=== PATIENT | male | born 1995 | race Caucasian/White ===

== ENCOUNTER 2021-03-13 19:33 | Observation (INO) | payer BC ==
[2021-03-13] MEDS ORDERED: Sodium Chloride 0.9% 2.5 ML Syringe FLUSH PRN (19:56)
[2021-03-13] MEDS ORDERED: Albuterol/Ipratropium 3.0-0.5 MG/3 ML Neb Soln NEB ONE ×4 (19:56→22:44)
[2021-03-13] MEDS ORDERED: Sodium Chloride 0.9% 10 ML Syringe FLUSH PRN (19:56)
[2021-03-13] MEDS ORDERED: Dexamethasone 10 MG/ML SDV IVPUSH ONE (19:57)
[2021-03-13] MEDS ORDERED: Sodium Chloride 0.9% 1,000 ML IV ONE (19:57)
[2021-03-13] MEDS ORDERED: Magnesium Sulfate (4.06 MEQ/ML) 5 GM/10 ML SDV IV STA (20:12)
[2021-03-13 20:43] LABS: BLOOD UREA NITROGEN,BUN 10 mg/dL (7.0-18.0); CARBON DIOXIDE,CO2 26.2 mmol/L (21.0-32.0); CHLORIDE,CL 98 mmol/L (98-107); GLUCOSE RANDOM 115 mg/dL (74-106); POTASSIUM,K 3.7 mmol/L (3.5-5.1); SODIUM,NA 138 mmol/L (136-148)
--- NOTE | 2021-03-13 20:49 | CR ---
INDICATION: Shortness of breath. TECHNIQUE: Chest radiograph 1 view COMPARISON: 04/19/2018 FINDINGS: Cardiovascular and mediastinum: The heart silhouette is normal in size and morphology. The mediastinum is normal in appearance. Lungs and pleural spaces: Both lungs are unremarkable in appearance. No sign of pleural effusion seen. No pneumothorax is identified. Bones and soft tissues: No significant findings. IMPRESSION: 1. No acute cardiopulmonary disease is seen. Dictated by Fernando Landaverde MD @ 03/13/2021 8:47:00 PM (Electronically Signed)
[2021-03-13] MEDS ORDERED: Magnesium Sulfate/Water 50 ML IV ONE (21:00)
--- NOTE | 2021-03-13 21:19 | PCM.EKG ---
#1 Interpretation EKG Date: 03/13/21 Time: 21:09 Rhythm: Other (sinus tach) Rate (Beats/Min): 109 ST-T: Normal
[2021-03-13] MEDS ORDERED: Magnesium Sulfate/Water 25 ML IV ONE (21:20)
[2021-03-13] MEDS ORDERED: Iopamidol 755 MG/ML 500 ML Multipack Bottle IVPUSH ONE (21:31)
--- NOTE | 2021-03-13 21:46 | EDM.PDOC ---
ED HPI GENERAL MEDICAL PROBLEM - General Chief Complaint: Respiratory Problem Stated Complaint: ASTHMA, SOB Time Seen by Provider: 03/13/21 19:54 Source of Information: Reports: Patient History Limitations: Reports: No Limitations - History of Present Illness INITIAL COMMENTS - FREE TEXT/NARRATIVE: HISTORY AND PHYSICAL: History of present illness: Patient is a 25-year-old male who presents emergency room today with concern of shortness of breath and wheezing with known asthma diagnosis. Patient states that he typically does not require an asthma regimen and has a rescue inhaler which he typically never uses. However, patient states that just over a month ago he was diagnosed with COVID-19 and is no longer on quarantine for that but states that ever since that, he has had frequent asthma exacerbations. Patient states he is also been to another emergency room and was told it was "just asthma ". Patient states over the past couple days, he has had worsening wheezing and shortness of breath and today his nebulizers were no longer helping at home so he came to the emergency room for further evaluation. Patient states that he was last on prednisone approximately 2 weeks ago and states that he has been on frequent steroids since the COVID-19 diagnosis. Patient also states that he is having some "rib pain" which is worse with coughing. Patient states that the rib pain started with coughing so hard. Patient denies any other symptoms or concerns. Patient denies fever, chills, chest pain, shortness of breath, or cough. Denies headache, neck stiff ness, change in vision, syncope, or near syncope. Denies nausea, vomiting, abdominal pain, diarrhea, constipation, or dysuria. Has not noted any blood in urine or stool. Patient has been eating and drinking ap propriately. Review of systems: As per history of present illness and below otherwise all systems reviewed and negative. Past medical history: As per history of present illness and as reviewed below otherwise noncontributory. Surgical history: As per history of present illness and as reviewed below otherwise noncontributory. Social history: See social history for further information Family history: As per history of present illness and as reviewed below otherwise noncontributory. Physical exam: General: Patient is alert, oriented. Patient sitting on exam table, tachypneic and mild-moderate respiratory distress. Patient is 87-90% on RA, tachycardic 120s. Otherwise vitally stable and reviewed by me. HECRISTA: Atraumatic, normocephalic, pupils equal and reactive bilaterally, negative for conjunctival pallor or scleral icterus, mucous membranes moist, TMs normal bilaterally, throat clear, neck supple, nontender, trachea midline. No drooling or trismus noted. No meningeal signs. No hot potato voice noted. Lungs: Diffuse expiratory wheezing to auscultation throughout all lung feng, breath sounds equal bilaterally, chest nontender. Patient speaking clearly without breathlessness, no stridor, use of accessory muscle use Heart: S1S2, regular rate and rhythm without overt murmur Abdomen: Soft, nondistended, nontender. Negative for masses or hepatosplenomegaly. Negative for costovertebral tenderness. Pelvis: Stable nontender. Genitourinary: Deferred. Rectal: Deferred. Skin: Intact, warm, dry. No lesions or rashes noted. Extremities: Atraumatic, negative for cords or calf pain. Neurovascular unremarkable. Neuro: Awake, alert, oriented. Cranial nerves II through XII unremarkable. Cerebellum unremarkable. Motor and sensory unremarkable throughout. Exam nonfocal. Notes: Patient is a 25-year-old male who presents emergency room today with concern of wheezing and shortness of breath worsening over the past several days with increased in asthma exacerbation since COVID-19 just little bit over a month ago. Upon arrival to ED, patient is 87-90% on room air, tachycardic 120s and tachypneic on exam. Patient is using accessory muscle use but is able to speak clearly without breathlessness. Patient does have diffuse expiratory wheezing throughout all lung feng. Patient was immediately given continuous DuoNeb, and Decadron while awaiting lab work. Following the nebulizer, patient continues to have diffuse wheezing, but does have improvement of accessory muscle use. Patient was placed on 3 L nasal cannula and satting about 96%. He is still tachypneic. Will also provide magnesium at this time. See Dr. Akbar dictation for specific EKG interpretation. However, sinus tachycardia with a rate of 109 without STEMI or acute changes. CBC notable for a white blood cell count of 20.34 with a left shift with 12.8 absolute segmented neutrophils and 2.4 band percent. Otherwise mild derangements of CBC unremarkable. D-dimer is elevated at 0.62. Will obtain an giography chest CT. CMP mild derangements unremarkable. Troponin negative. Chest x-ray shows no acute cardiopulmonary findings. Following completion of Magnesium, patient remains on 3 L nasal cannula satting now at this time approximately 93%. I did try to remove oxygen and patient does go back down to the 87 to 90% on room air. Reexamination of patient lungs to auscultation still shows diffuse expiratory wheezing to auscultation throughout all lung feng, although, patient's respiratory effort has improved. He still remains mildly tachypneic. I did call and speak to the hospital physical integration practitioner Dr. Manzanares and thoroughly discussed patients case. Will admit to observation to Dr. Manzanares. Voices understanding and is agreeable to plan of care. Denies any further questions or concerns at this time. Diagnostics: EKG, CBC, CMP, Ddimer, Trop, CXR, Ang CT Chest, Lactate, VBG Therapeutics: NS, Duoneb x 3, Decadron, Magnesium, Repeat Duoneb Impression: Acute asthma exacerbation Hypoxia Plan: Admit to observation to Dr. Manzanares Definitive disposition and diagnosis as appropriate pending reevaluation and review of above. Bilateral Thoracic Pain Score (Numeric/FACES): 9 - Related Data Allergies Allergy/AdvReac Type Severity Reaction Status Date / Time bee venom protein (honey bee) Allergy Anaphylactic Verified 03/14/21 01:29 Shock Home Meds: Home Meds Albuterol Sulfate [Proair Hfa] 1 puff INH ASDIRECTED PRN 03/29/18 [History] Albuterol [Ventolin HFA] 1 puff INH Q4H PRN #1 inh 04/19/18 [Rx] Albuterol/Ipratropium [Combivent Respimat] 4 gm IH BID #1 aer.w.adap 04/19/18 [Rx] Past Medical History Respiratory History: Reports: Asthma - Infectious Disease History Infectious Disease History: Reports: Chicken Pox - Past Surgical History GI Surgical History: Reports: Hernia Repair/Other Social & Family History - Family History Family Medical History: No Pertinent Family History Respiratory: Reports: Asthma Endocrine/Metabolic: Reports: Diabetes, Type I - Tobacco Use Tobacco Use Status *Q: Former Tobacco User Packs/Tins Daily: 0.5 Used Tobacco, but Quit: No - Caffeine Use Caffeine Use: Reports: Soda Caffeine Use Comment: 1 L daily - Recreational Drug Use Recreational Drug Use: No ED ROS GENERAL - Review of Systems Review Of Systems: Comprehensive ROS is negative, except as noted in HPI. ED EXAM, GENERAL - Physical Exam Exam: See Below (see dictation) Course - Vital Signs Last Recorded V/S: Last Vital Signs Temp 98.3 F 03/14/21 07:36 Pulse 93 03/14/21 07:36 Resp 18 03/14/21 07:36 BP 139/73 03/14/21 07:36 Pulse Ox 92 L 03/14/21 07:36 - Orders/Labs/Meds Orders: Active Orders 24 hr Category Date Time Status RT Aerosol Therapy [RC] ASDIRECTED Care 03/13/21 19:56 Active RT Aerosol Therapy [RC] ASDIRECTED Care 03/13/21 19:56 Active RT Aerosol Therapy [RC] ASDIRECTED Care 03/13/21 19:56 Active RT Aerosol Therapy [RC] ASDIRECTED Care 03/13/21 22:44 Active Sodium Chloride 0.9% [Saline Flush] Med 03/13/21 19:56 Active 10 ml FLUSH ASDIRECTED PRN Sodium Chloride 0.9% [Saline Flush] Med 03/13/21 19:56 Active 2.5 ml FLUSH ASDIRECTED PRN Saline Lock Insert [OM.PC] Stat Oth 03/13/21 19:56 Ordered Medication Orders Albuterol/Ipratropium (Albuterol/Ipratropium 3.0-0.5 Mg/3 Ml Neb Soln) 3 ml NEB Q4HRRT [facility] Last Admin: 03/14/21 05:54 Dose: 3 ml Documented by: JULIANNE Azithromycin (Azithromycin 250 Mg Tab) 500 mg PO Q24H [facility] Last Admin: 03/14/21 02:53 Dose: 500 mg Documented by: MIAH Methylprednisolone Sodium Succinate (Methylprednisolone Sodium Succinate 125 Mg/2 Ml Sdv) 125 mg IVPUSH DAILY [facility] Sodium Chloride (Sodium Chloride 0.9% 10 Ml Syringe) 10 ml FLUSH ASDIRECTED PRN PRN Reason: Keep Vein Open Last Admin: 03/13/21 19:59 Dose: 10 ml Documented by: GENEVA Sodium Chloride (Sodium Chloride 0.9% 2.5 Ml Syringe) 2.5 ml FLUSH ASDIRECTED PRN PRN Reason: Keep Vein Open Last Admin: 03/13/21 19:59 Dose: 2.5 ml Documented by: GENEVA Labs: Laboratory Tests 03/13/21 03/13/21 03/13/21 Range/Units 20:05 20:05 20:05 WBC 20.34 H (4.0-11.0) K/uL RBC 5.19 (4.50-5.90) M/uL Hgb 17.2 H (13.0-17.0) g/dL Hct 48.6 (38.0-50.0) % MCV 93.6 (80.0-98.0) fL MCH 33.1 H (27.0-32.0) pg MCHC 35.4 (31.0-37.0) g/dL RDW Std Deviation 43.2 (28.0-62.0) fl RDW Coeff of Lydia 13 (11.0-15.0) % Plt Count 299 (150-400) K/uL MPV 9.40 (7.40-12.00) fL Add Manual Diff YES Neutrophils % (Manual) 63 (48.0-80.0) % Band Neutrophils % 12 % Lymphocytes % (Manual) 19 (16.0-40.0) % Monocytes % (Manual) 2 (0.0-15.0) % Eosinophils % (Manual) 4 (0.0-7.0) % Absolute Seg Neuts 12.8 H (1.4-5.7) Band Neutrophils # 2.4 Lymphocytes # (Manual) 3.9 H (0.6-2.4) Monocytes # (Manual) 0.4 (0.0-0.8) Eosinophils # (Manual) 0.8 H (0.0-0.7) D-Dimer, Quantitative 0.62 H (0.0-0.50) mg/L FEU VBG pH (7.31-7.41) VBG pCO2 (41-51) mmHG VBG pO2 mmHG VBG HCO3 (23-28) mEq/L VBG Total CO2 (24-29) mmol/L VBG Base Excess (-2.0-3.0) Sodium 138 (136-148) mmol/L Potassium 3.7 (3.5-5.1) mmol/L Chloride 98 (98-107) mmol/L Carbon Dioxide 26.2 (21.0-32.0) mmol/L BUN 10 (7.0-18.0) mg/dL Creatinine 1.0 (0.8-1.3) mg/dL Est Cr Clr Drug Dosing 115.58 mL/min Estimated GFR (MDRD) > 60.0 ml/min Glucose 115 H (74-106) mg/dL Lactic Acid (0.4-2.0) mmol/L Calcium 8.5 (8.5-10.1) mg/dL Total Bilirubin 0.4 (0.2-1.0) mg/dL AST 28 (15-37) IU/L ALT 53 (14-63) IU/L Alkaline Phosphatase 91 (46-116) U/L Troponin I < 0.050 (0.000-0.056) ng/mL Total Protein 7.7 (6.4-8.2) g/dL Albumin 4.2 (3.4-5.0) g/dL Globulin 3.5 (2.6-4.0) g/dL Albumin/Globulin Ratio 1.2 (0.9-1.6) SARS-CoV-2 RNA (CASSANDRA) (NEGATIVE) 03/13/21 03/13/21 03/13/21 Range/Units 22:14 22:14 22:50 WBC (4.0-11.0) K/uL RBC (4.50-5.90) M/uL Hgb (13.0-17.0) g/dL Hct (38.0-50.0) % MCV (80.0-98.0) fL MCH (27.0-32.0) pg MCHC (31.0-37.0) g/dL RDW Std Deviation (28.0-62.0) fl RDW Coeff of Lydia (11.0-15.0) % Plt Count (150-400) K/uL MPV (7.40-12.00) fL Add Manual Diff Neutrophils % (Manual) (48.0-80.0) % Band Neutrophils % % Lymphocytes % (Manual) (16.0-40.0) % Monocytes % (Manual) (0.0-15.0) % Eosinophils % (Manual) (0.0-7.0) % Absolute Seg Neuts (1.4-5.7) Band Neutrophils # Lymphocytes # (Manual) (0.6-2.4) Monocytes # (Manual) (0.0-0.8) Eosinophils # (Manual) (0.0-0.7) D-Dimer, Quantitative (0.0-0.50) mg/L FEU VBG pH 7.38 (7.31-7.41) VBG pCO2 42 (41-51) mmHG VBG pO2 50 mmHG VBG HCO3 24 (23-28) mEq/L VBG Total CO2 21 L (24-29) mmol/L VBG Base Excess -0.9 (-2.0-3.0) Sodium (136-148) mmol/L Potassium (3.5-5.1) mmol/L Chloride (98-107) mmol/L Carbon Dioxide (21.0-32.0) mmol/L BUN (7.0-18.0) mg/dL Creatinine (0.8-1.3) mg/dL Est Cr Clr Drug Dosing mL/min Estimated GFR (MDRD) ml/min Glucose (74-106) mg/dL Lactic Acid 1.0 (0.4-2.0) mmol/L Calcium (8.5-10.1) mg/dL Total Bilirubin (0.2-1.0) mg/dL AST (15-37) IU/L ALT (14-63) IU/L Alkaline Phosphatase (46-116) U/L Troponin I (0.000-0.056) ng/mL Total Protein (6.4-8.2) g/dL Albumin (3.4-5.0) g/dL Globulin (2.6-4.0) g/dL Albumin/Globulin Ratio (0.9-1.6) SARS-CoV-2 RNA (CASSANDRA) NEGATIVE (NEGATIVE) Meds: Medications Generic Name Dose Route Start Last Admin Trade Name Freq PRN Reason Stop Dose Admin Albuterol/Ipratropium 3 ml 03/14/21 06:00 03/14/21 05:54 Albuterol/Ipratropium 3.0-0.5 Mg/3 Ml Neb Soln NEB 3 ml Q4HRRT MARILEE Administration Azithromycin 500 mg 03/14/21 02:15 03/14/21 02:53 Azithromycin 250 Mg Tab PO 500 mg Q24H MARILEE Administration Methylprednisolone Sodium Succinate 125 mg 03/14/21 09:00 Methylprednisolone Sodium Succinate 125 Mg/2 Ml Sdv IVPUSH DAILY [facility] Sodium Chloride 10 ml 03/13/21 19:56 03/13/21 19:59 Sodium Chloride 0.9% 10 Ml Syringe FLUSH 10 ml ASDIRECTED PRN Administration Keep Vein Open Sodium Chloride 2.5 ml 03/13/21 19:56 03/13/21 19:59 Sodium Chloride 0.9% 2.5 Ml Syringe FLUSH 2.5 ml ASDIRECTED PRN Administration Keep Vein Open Discontinued Medications Generic Name Dose Route Start Last Admin Trade Name Freq PRN Reason Stop Dose Admin Albuterol/Ipratropium 3 ml 03/13/21 19:56 03/13/21 19:59 Albuterol/Ipratropium 3.0-0.5 Mg/3 Ml Neb Soln NEB 03/13/21 19:57 3 ml ONETIME ONE Administration Albuterol/Ipratropium 3 ml 03/13/21 19:56 03/13/21 19:59 Albuterol/Ipratropium 3.0-0.5 Mg/3 Ml Neb Soln NEB 03/13/21 19:57 3 ml ONETIME ONE Administration Albuterol/Ipratropium 3 ml 03/13/21 19:56 03/13/21 19:59 Albuterol/Ipratropium 3.0-0.5 Mg/3 Ml Neb Soln NEB 03/13/21 19:57 3 ml ONETIME ONE Administration Albuterol/Ipratropium 3 ml 03/13/21 22:44 03/13/21 22:56 Albuterol/Ipratropium 3.0-0.5 Mg/3 Ml Neb Soln NEB 03/13/21 22:45 3 ml ONETIME ONE Administration Dexamethasone 10 mg 03/13/21 19:57 03/13/21 20:03 Dexamethasone 10 Mg/Ml Sdv IVPUSH 03/13/21 19:58 10 mg ONETIME ONE Administration Sodium Chloride 1,000 mls @ 999 mls/hr 03/13/21 19:57 03/13/21 20:03 Normal Saline IV 03/13/21 20:57 999 mls/hr STAT ONE Administration Magnesium Sulfate 50 mls @ 150 mls/hr 03/13/21 21:00 03/13/21 21:04 Magnesium Sulfate In Water 2 Gm/50 Ml IV 03/13/21 21:19 150 mls/hr ONETIME ONE Administration Magnesium Sulfate 25 mls @ 150 mls/hr 03/13/21 21:20 Magnesium Sulfate In Water 2 Gm/50 Ml IV 03/13/21 21:29 ONETIME ONE Iopamidol 100 ml 03/13/21 21:31 03/13/21 21:47 Iopamidol 755 Mg/Ml 500 Ml Multipack Bottle IVPUSH 03/13/21 21:32 100 ml ONETIME ONE Administration Magnesium Sulfate 3 gm 03/13/21 20:12 Magnesium Sulfate (4.06 Meq/Ml) 5 Gm/10 Ml Sdv IV 03/13/21 20:13 NOW STA Departure - Departure Time of Disposition: 10:10 Disposition: Refer to Observation Clinical Impression: Hypoxia Acute asthma exacerbation Qualifiers: Asthma severity: mild Asthma persistence: intermittent Qualified Code(s): J45.21 - Mild intermittent asthma with (acute) exacerbation - Discharge Information Sepsis Event Note (ED) - Evaluation Sepsis Screening Result: No Definite Risk - Focused Exam Vital Signs: Vital Signs Pulse Resp BP Pulse Ox 03/13/21 23:00 104 H 22 H 145/77 H 96 - My Orders Last 24 Hours: My Active Orders 03/13/21 19:56 RT Aerosol Therapy [RC] ASDIRECTED RT Aerosol Therapy [RC] ASDIRECTED RT Aerosol Therapy [RC] ASDIRECTED Sodium Chloride 0.9% [Saline Flush] 10 ml FLUSH ASDIRECTED PRN Sodium Chloride 0.9% [Saline Flush] 2.5 ml FLUSH ASDIRECTED PRN Saline Lock Insert [OM.PC] Stat 03/13/21 22:44 RT Aerosol Therapy [RC] ASDIRECTED - Assessment/Plan Last 24 Hours: My Active Orders 03/13/21 19:56 RT Aerosol Therapy [RC] ASDIRECTED RT Aerosol Therapy [RC] ASDIRECTED RT Aerosol Therapy [RC] ASDIRECTED Sodium Chloride 0.9% [Saline Flush] 10 ml FLUSH ASDIRECTED PRN Sodium Chloride 0.9% [Saline Flush] 2.5 ml FLUSH ASDIRECTED PRN Saline Lock Insert [OM.PC] Stat 03/13/21 22:44 RT Aerosol Therapy [RC] ASDIRECTED
--- NOTE | 2021-03-13 22:49 | CT ---
INDICATION: Chest pain, hypoxia and elevated D-dimer TECHNIQUE: CT chest PE was acquired with 100 cc Isovue 370 intravenous contrast. COMPARISON: None. FINDINGS: Heart and vasculature: Contrast opacification of the pulmonary arterial tree is adequate. No sign of pulmonary embolism. Heart size is normal. Thoracic aorta and pulmonary artery are normal in caliber. Lungs and pleural: No suspicious nodules or infiltrates. No pleural effusions, pleural thickening, or pneumothorax. Lymph nodes/mediastinum: No mediastinal, hilar, or axillary adenopathy. Chest wall: No masses. Upper abdomen: Normal. Bones: Unremarkable for age. IMPRESSION: Unremarkable chest CTA. No evidence of pulmonary embolus. Please note that all CT scans at this facility use dose modulation, iterative reconstruction, and/or weight-based dosing when appropriate to reduce radiation dose to as low as reasonably achievable. Dictated by Aftab Amaya MD @ 03/13/2021 10:47:17 PM (Electronically Signed)
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
[2021-03-14] MEDS: Azithromycin 250 MG Tab PO SCH (02:53)
[2021-03-14] MEDS: Albuterol/Ipratropium 3.0-0.5 MG/3 ML Neb Soln NEB SCH ×5 (05:54→22:56)
[2021-03-14 07:50] LABS: BLOOD UREA NITROGEN,BUN 10 mg/dL (7.0-18.0); CARBON DIOXIDE,CO2 23.8 mmol/L (21.0-32.0); CHLORIDE,CL 101 mmol/L (98-107); GLUCOSE RANDOM 131 mg/dL (74-106); POTASSIUM,K 4.7 mmol/L (3.5-5.1); SODIUM,NA 137 mmol/L (136-148)
[2021-03-14] MEDS: methylPREDNISolone Sodium Succinate 125 MG/2 ML SDV IVPUSH SCH (10:10)
[2021-03-14] MEDS ORDERED: Acetaminophen 325 MG Tab PO PRN (13:32)
[2021-03-14] MEDS ORDERED: Ibuprofen 200 MG Tab PO PRN (13:32)
--- NOTE | 2021-03-14 13:41 | PCM.PN ---
- General Info Date of Service: 03/14/21 - Review of Systems Systems Review Comment:: feeling better, still has chest tightness and shortness of breath. - Patient Data Vitals - Most Recent: Last Vital Signs Temp 36.5 C 03/14/21 11:25 Pulse 99 03/14/21 11:25 Resp 18 03/14/21 11:25 BP 154/84 H 03/14/21 11:25 Pulse Ox 92 L 03/14/21 11:25 Weight - Most Recent: 89.222 kg I&O - Last 24 Hours: Intake & Output 03/13/21 03/14/21 03/14/21 22:59 06:59 14:59 Intake Total 200 Output Total 400 Balance -200 Lab Results Last 24 Hours: Laboratory Results - last 24 hr 03/13/21 03/13/21 03/13/21 Range/Units 20:05 20:05 20:05 WBC 20.34 H (4.0-11.0) K/uL RBC 5.19 (4.50-5.90) M/uL Hgb 17.2 H (13.0-17.0) g/dL Hct 48.6 (38.0-50.0) % MCV 93.6 (80.0-98.0) fL MCH 33.1 H (27.0-32.0) pg MCHC 35.4 (31.0-37.0) g/dL RDW Std Deviation 43.2 (28.0-62.0) fl RDW Coeff of Lydia 13 (11.0-15.0) % Plt Count 299 (150-400) K/uL MPV 9.40 (7.40-12.00) fL Add Manual Diff YES Neutrophils % (Manual) 63 (48.0-80.0) % Band Neutrophils % 12 % Lymphocytes % (Manual) 19 (16.0-40.0) % Monocytes % (Manual) 2 (0.0-15.0) % Eosinophils % (Manual) 4 (0.0-7.0) % Absolute Seg Neuts 12.8 H (1.4-5.7) Band Neutrophils # 2.4 Lymphocytes # (Manual) 3.9 H (0.6-2.4) Monocytes # (Manual) 0.4 (0.0-0.8) Eosinophils # (Manual) 0.8 H (0.0-0.7) D-Dimer, Quantitative 0.62 H (0.0-0.50) mg/L FEU VBG pH (7.31-7.41) VBG pCO2 (41-51) mmHG VBG pO2 mmHG VBG HCO3 (23-28) mEq/L VBG Total CO2 (24-29) mmol/L VBG Base Excess (-2.0-3.0) Sodium 138 (136-148) mmol/L Potassium 3.7 (3.5-5.1) mmol/L Chloride 98 (98-107) mmol/L Carbon Dioxide 26.2 (21.0-32.0) mmol/L BUN 10 (7.0-18.0) mg/dL Creatinine 1.0 (0.8-1.3) mg/dL Est Cr Clr Drug Dosing 115.58 mL/min Estimated GFR (MDRD) > 60.0 ml/min Glucose 115 H (74-106) mg/dL Lactic Acid (0.4-2.0) mmol/L Calcium 8.5 (8.5-10.1) mg/dL Total Bilirubin 0.4 (0.2-1.0) mg/dL AST 28 (15-37) IU/L ALT 53 (14-63) IU/L Alkaline Phosphatase 91 (46-116) U/L Troponin I < 0.050 (0.000-0.056) ng/mL Total Protein 7.7 (6.4-8.2) g/dL Albumin 4.2 (3.4-5.0) g/dL Globulin 3.5 (2.6-4.0) g/dL Albumin/Globulin Ratio 1.2 (0.9-1.6) SARS-CoV-2 RNA ([facility]ASSANDRA) (NEGATIVE) 03/13/21 03/13/21 03/13/21 Range/Units 22:14 22:14 22:50 WBC (4.0-11.0) K/uL RBC (4.50-5.90) M/uL Hgb (13.0-17.0) g/dL Hct (38.0-50.0) % MCV (80.0-98.0) fL MCH (27.0-32.0) pg MCHC (31.0-37.0) g/dL RDW Std Deviation (28.0-62.0) fl RDW Coeff of Lydia (11.0-15.0) % Plt Count (150-400) K/uL MPV (7.40-12.00) fL Add Manual Diff Neutrophils % (Manual) (48.0-80.0) % Band Neutrophils % % Lymphocytes % (Manual) (16.0-40.0) % Monocytes % (Manual) (0.0-15.0) % Eosinophils % (Manual) (0.0-7.0) % Absolute Seg Neuts (1.4-5.7) Band Neutrophils # Lymphocytes # (Manual) (0.6-2.4) Monocytes # (Manual) (0.0-0.8) Eosinophils # (Manual) (0.0-0.7) D-Dimer, Quantitative (0.0-0.50) mg/L FEU VBG pH 7.38 (7.31-7.41) VBG pCO2 42 (41-51) mmHG VBG pO2 50 mmHG VBG HCO3 24 (23-28) mEq/L VBG Total CO2 21 L (24-29) mmol/L VBG Base Excess -0.9 (-2.0-3.0) Sodium (136-148) mmol/L Potassium (3.5-5.1) mmol/L Chloride (98-107) mmol/L Carbon Dioxide (21.0-32.0) mmol/L BUN (7.0-18.0) mg/dL Creatinine (0.8-1.3) mg/dL Est Cr Clr Drug Dosing mL/min Estimated GFR (MDRD) ml/min Glucose (74-106) mg/dL Lactic Acid 1.0 (0.4-2.0) mmol/L Calcium (8.5-10.1) mg/dL Total Bilirubin (0.2-1.0) mg/dL AST (15-37) IU/L ALT (14-63) IU/L Alkaline Phosphatase (46-116) U/L Troponin I (0.000-0.056) ng/mL Total Protein (6.4-8.2) g/dL Albumin (3.4-5.0) g/dL Globulin (2.6-4.0) g/dL Albumin/Globulin Ratio (0.9-1.6) SARS-CoV-2 RNA (CASSANDRA) NEGATIVE (NEGATIVE) 03/14/21 03/14/21 Range/Units 06:35 06:35 WBC 14.77 H (4.0-11.0) K/uL RBC 5.02 (4.50-5.90) M/uL Hgb 16.5 (13.0-17.0) g/dL Hct 47.4 (38.0-50.0) % MCV 94.4 (80.0-98.0) fL MCH 32.9 H (27.0-32.0) pg MCHC 34.8 (31.0-37.0) g/dL RDW Std Deviation 43.8 (28.0-62.0) fl RDW Coeff of Lydia 13 (11.0-15.0) % Plt Count 300 (150-400) K/uL MPV 9.90 (7.40-12.00) fL Add Manual Diff YES Neutrophils % (Manual) 90 H (48.0-80.0) % Band Neutrophils % 3 % Lymphocytes % (Manual) 4 L (16.0-40.0) % Monocytes % (Manual) 3 (0.0-15.0) % Eosinophils % (Manual) (0.0-7.0) % Absolute Seg Neuts 13.3 H (1.4-5.7) Band Neutrophils # 0.4 Lymphocytes # (Manual) 0.6 (0.6-2.4) Monocytes # (Manual) 0.4 (0.0-0.8) Eosinophils # (Manual) (0.0-0.7) D-Dimer, Quantitative (0.0-0.50) mg/L FEU VBG pH (7.31-7.41) VBG pCO2 (41-51) mmHG VBG pO2 mmHG VBG HCO3 (23-28) mEq/L VBG Total CO2 (24-29) mmol/L VBG Base Excess (-2.0-3.0) Sodium 137 (136-148) mmol/L Potassium 4.7 (3.5-5.1) mmol/L Chloride 101 (98-107) mmol/L Carbon Dioxide 23.8 (21.0-32.0) mmol/L BUN 10 (7.0-18.0) mg/dL Creatinine 1.0 (0.8-1.3) mg/dL Est Cr Clr Drug Dosing 115.58 mL/min Estimated GFR (MDRD) > 60.0 ml/min Glucose 131 H (74-106) mg/dL Lactic Acid (0.4-2.0) mmol/L Calcium 8.7 (8.5-10.1) mg/dL Total Bilirubin (0.2-1.0) mg/dL AST (15-37) IU/L ALT (14-63) IU/L Alkaline Phosphatase (46-116) U/L Troponin I (0.000-0.056) ng/mL Total Protein (6.4-8.2) g/dL Albumin (3.4-5.0) g/dL Globulin (2.6-4.0) g/dL Albumin/Globulin Ratio (0.9-1.6) SARS-CoV-2 RNA (C[facility]ANDRA) (NEGATIVE) Med Orders - Current: Current Medications Albuterol/Ipratropium (Albuterol/Ipratropium 3.0-0.5 Mg/3 Ml Neb Soln) 3 ml NEB Q4HRRT [facility] Last Admin: 03/14/21 10:24 Dose: 3 ml Documented by: Azithromycin (Azithromycin 250 Mg Tab) 500 mg PO Q24H [facility] Last Admin: 03/14/21 02:53 Dose: 500 mg Documented by: Methylprednisolone Sodium Succinate (Methylprednisolone Sodium Succinate 125 Mg/2 Ml Sdv) 125 mg IVPUSH DAILY [facility] Last Admin: 03/14/21 10:10 Dose: 125 mg Documented by: Sodium Chloride (Sodium Chloride 0.9% 10 Ml Syringe) 10 ml FLUSH ASDIRECTED PRN PRN Reason: Keep Vein Open Last Admin: 03/13/21 19:59 Dose: 10 ml Documented by: Sodium Chloride (Sodium Chloride 0.9% 2.5 Ml Syringe) 2.5 ml FLUSH ASDIRECTED PRN PRN Reason: Keep Vein Open Last Admin: 03/13/21 19:59 Dose: 2.5 ml Documented by: Discontinued Medications Albuterol/Ipratropium (Albuterol/Ipratropium 3.0-0.5 Mg/3 Ml Neb Soln) 3 ml NEB ONETIME ONE Stop: 03/13/21 19:57 Last Admin: 03/13/21 19:59 Dose: 3 ml Documented by: Albuterol/Ipratropium (Albuterol/Ipratropium 3.0-0.5 Mg/3 Ml Neb Soln) 3 ml NEB ONETIME ONE Stop: 03/13/21 19:57 Last Admin: 03/13/21 19:59 Dose: 3 ml Documented by: Albuterol/Ipratropium (Albuterol/Ipratropium 3.0-0.5 Mg/3 Ml Neb Soln) 3 ml NEB ONETIME ONE Stop: 03/13/21 19:57 Last Admin: 03/13/21 19:59 Dose: 3 ml Documented by: Albuterol/Ipratropium (Albuterol/Ipratropium 3.0-0.5 Mg/3 Ml Neb Soln) 3 ml NEB ONETIME ONE Stop: 03/13/21 22:45 Last Admin: 03/13/21 22:56 Dose: 3 ml Documented by: Dexamethasone (Dexamethasone 10 Mg/Ml Sdv) 10 mg IVPUSH ONETIME ONE Stop: 03/13/21 19:58 Last Admin: 03/13/21 20:03 Dose: 10 mg Documented by: Sodium Chloride (Normal Saline) 1,000 mls @ 999 mls/hr IV STAT ONE Stop: 03/13/21 20:57 Last Admin: 03/13/21 20:03 Dose: 999 mls/hr Documented by: Magnesium Sulfate (Magnesium Sulfate In Water 2 Gm/50 Ml) 50 mls @ 150 mls/hr IV ONETIME ONE Stop: 03/13/21 21:19 Last Admin: 03/13/21 21:04 Dose: 150 mls/hr Documented by: Magnesium Sulfate (Magnesium Sulfate In Water 2 Gm/50 Ml) 25 mls @ 150 mls/hr IV ONETIME ONE Stop: 03/13/21 21:29 Iopamidol (Iopamidol 755 Mg/Ml 500 Ml Multipack Bottle) 100 ml IVPUSH ONETIME ONE Stop: 03/13/21 21:32 Last Admin: 03/13/21 21:47 Dose: 100 ml Documented by: Magnesium Sulfate (Magnesium Sulfate (4.06 Meq/Ml) 5 Gm/10 Ml Sdv) 3 gm IV NOW STA Stop: 03/13/21 20:13 - Exam General: Alert, Oriented Neck: Supple Lungs: Normal Respiratory Effort, Rhonchi Cardiovascular: Regular Rate, Regular Rhythm GI/Abdominal Exam: Normal Bowel Sounds, Soft Extremities: Non-Tender, No Pedal Edema Skin: Warm, Dry, Intact Neurological: No New Focal Deficit - Patient Data Lab Results Last 24 hrs: Laboratory Results - last 24 hr 03/13/21 03/13/21 03/13/21 Range/Units 20:05 20:05 20:05 WBC 20.34 H (4.0-11.0) K/uL RBC 5.19 (4.50-5.90) M/uL Hgb 17.2 H (13.0-17.0) g/dL Hct 48.6 (38.0-50.0) % MCV 93.6 (80.0-98.0) fL MCH 33.1 H (27.0-32.0) pg MCHC 35.4 (31.0-37.0) g/dL RDW Std Deviation 43.2 (28.0-62.0) fl RDW Coeff of Lydia 13 (11.0-15.0) % Plt Count 299 (150-400) K/uL MPV 9.40 (7.40-12.00) fL Add Manual Diff YES Neutrophils % (Manual) 63 (48.0-80.0) % Band Neutrophils % 12 % Lymphocytes % (Manual) 19 (16.0-40.0) % Monocytes % (Manual) 2 (0.0-15.0) % Eosinophils % (Manual) 4 (0.0-7.0) % Absolute Seg Neuts 12.8 H (1.4-5.7) Band Neutrophils # 2.4 Lymphocytes # (Manual) 3.9 H (0.6-2.4) Monocytes # (Manual) 0.4 (0.0-0.8) Eosinophils # (Manual) 0.8 H (0.0-0.7) D-Dimer, Quantitative 0.62 H (0.0-0.50) mg/L FEU VBG pH (7.31-7.41) VBG pCO2 (41-51) mmHG VBG pO2 mmHG VBG HCO3 (23-28) mEq/L VBG Total CO2 (24-29) mmol/L VBG Base Excess (-2.0-3.0) Sodium 138 (136-148) mmol/L Potassium 3.7 (3.5-5.1) mmol/L Chloride 98 (98-107) mmol/L Carbon Dioxide 26.2 (21.0-32.0) mmol/L BUN 10 (7.0-18.0) mg/dL Creatinine 1.0 (0.8-1.3) mg/dL Est Cr Clr Drug Dosing 115.58 mL/min Estimated GFR (MDRD) > 60.0 ml/min Glucose 115 H (74-106) mg/dL Lactic Acid (0.4-2.0) mmol/L Calcium 8.5 (8.5-10.1) mg/dL Total Bilirubin 0.4 (0.2-1.0) mg/dL AST 28 (15-37) IU/L ALT 53 (14-63) IU/L Alkaline Phosphatase 91 (46-116) U/L Troponin I < 0.050 (0.000-0.056) ng/mL Total Protein 7.7 (6.4-8.2) g/dL Albumin 4.2 (3.4-5.0) g/dL Globulin 3.5 (2.6-4.0) g/dL Albumin/Globulin Ratio 1.2 (0.9-1.6) SARS-CoV-2 RNA (CASSANDRA) (NEGATIVE) 03/13/21 03/13/21 03/13/21 Range/Units 22:14 22:14 22:50 WBC (4.0-11.0) K/uL RBC (4.50-5.90) M/uL Hgb (13.0-17.0) g/dL Hct (38.0-50.0) % MCV (80.0-98.0) fL MCH (27.0-32.0) pg MCHC (31.0-37.0) g/dL RDW Std Deviation (28.0-62.0) fl RDW Coeff of Lydia (11.0-15.0) % Plt Count (150-400) K/uL MPV (7.40-12.00) fL Add Manual Diff Neutrophils % (Manual) (48.0-80.0) % Band Neutrophils % % Lymphocytes % (Manual) (16.0-40.0) % Monocytes % (Manual) (0.0-15.0) % Eosinophils % (Manual) (0.0-7.0) % Absolute Seg Neuts (1.4-5.7) Band Neutrophils # Lymphocytes # (Manual) (0.6-2.4) Monocytes # (Manual) (0.0-0.8) Eosinophils # (Manual) (0.0-0.7) D-Dimer, Quantitative (0.0-0.50) mg/L FEU VBG pH 7.38 (7.31-7.41) VBG pCO2 42 (41-51) mmHG VBG pO2 50 mmHG VBG HCO3 24 (23-28) mEq/L VBG Total CO2 21 L (24-29) mmol/L VBG Base Excess -0.9 (-2.0-3.0) Sodium (136-148) mmol/L Potassium (3.5-5.1) mmol/L Chloride (98-107) mmol/L Carbon Dioxide (21.0-32.0) mmol/L BUN (7.0-18.0) mg/dL Creatinine (0.8-1.3) mg/dL Est Cr Clr Drug Dosing mL/min Estimated GFR (MDRD) ml/min Glucose (74-106) mg/dL Lactic Acid 1.0 (0.4-2.0) mmol/L Calcium (8.5-10.1) mg/dL Total Bilirubin (0.2-1.0) mg/dL AST (15-37) IU/L ALT (14-63) IU/L Alkaline Phosphatase (46-116) U/L Troponin I (0.000-0.056) ng/mL Total Protein (6.4-8.2) g/dL Albumin (3.4-5.0) g/dL Globulin (2.6-4.0) g/dL Albumin/Globulin Ratio (0.9-1.6) SARS-CoV-2 RNA ([facility]) NEGATIVE (NEGATIVE) 03/14/21 03/14/21 Range/Units 06:35 06:35 WBC 14.77 H (4.0-11.0) K/uL RBC 5.02 (4.50-5.90) M/uL Hgb 16.5 (13.0-17.0) g/dL Hct 47.4 (38.0-50.0) % MCV 94.4 (80.0-98.0) fL MCH 32.9 H (27.0-32.0) pg MCHC 34.8 (31.0-37.0) g/dL RDW Std Deviation 43.8 (28.0-62.0) fl RDW Coeff of Lydia 13 (11.0-15.0) % Plt Count 300 (150-400) K/uL MPV 9.90 (7.40-12.00) fL Add Manual Diff YES Neutrophils % (Manual) 90 H (48.0-80.0) % Band Neutrophils % 3 % Lymphocytes % (Manual) 4 L (16.0-40.0) % Monocytes % (Manual) 3 (0.0-15.0) % Eosinophils % (Manual) (0.0-7.0) % Absolute Seg Neuts 13.3 H (1.4-5.7) Band Neutrophils # 0.4 Lymphocytes # (Manual) 0.6 (0.6-2.4) Monocytes # (Manual) 0.4 (0.0-0.8) Eosinophils # (Manual) (0.0-0.7) D-Dimer, Quantitative (0.0-0.50) mg/L FEU VBG pH (7.31-7.41) VBG pCO2 (41-51) mmHG VBG pO2 mmHG VBG HCO3 (23-28) mEq/L VBG Total CO2 (24-29) mmol/L VBG Base Excess (-2.0-3.0) Sodium 137 (136-148) mmol/L Potassium 4.7 (3.5-5.1) mmol/L Chloride 101 (98-107) mmol/L Carbon Dioxide 23.8 (21.0-32.0) mmol/L BUN 10 (7.0-18.0) mg/dL Creatinine 1.0 (0.8-1.3) mg/dL Est Cr Clr Drug Dosing 115.58 mL/min Estimated GFR (MDRD) > 60.0 ml/min Glucose 131 H (74-106) mg/dL Lactic Acid (0.4-2.0) mmol/L Calcium 8.7 (8.5-10.1) mg/dL Total Bilirubin (0.2-1.0) mg/dL AST (15-37) IU/L ALT (14-63) IU/L Alkaline Phosphatase (46-116) U/L Troponin I (0.000-0.056) ng/mL Total Protein (6.4-8.2) g/dL Albumin (3.4-5.0) g/dL Globulin (2.6-4.0) g/dL Albumin/Globulin Ratio (0.9-1.6) SARS-CoV-2 RNA ([facility]) (NEGATIVE) Result Diagrams: 03/14/21 06:35 03/14/21 06:35 Sepsis Event Note - Evaluation Sepsis Screening Result: No Definite Risk - Focused Exam Vital Signs: Vital Signs Temp Pulse Resp BP Pulse Ox 03/14/21 11:25 36.5 C 99 18 154/84 H 92 L 03/14/21 07:36 36.8 C 93 18 139/73 92 L 03/14/21 06:04 36.4 C 82 20 134/69 93 L 03/14/21 01:34 36.3 C 112 H 22 H 149/82 H 94 L - Problem List & Annotations (1) Acute asthma exacerbation SNOMED Code(s): 776493104 Code(s): J45.901 - UNSPECIFIED ASTHMA WITH (ACUTE) EXACERBATION Status: Acute Current Visit: Yes Qualifiers: Asthma severity: mild Asthma persistence: intermittent Qualified Code(s): J45.21 - Mild intermittent asthma with (acute) exacerbation - Problem List Review Problem List Initiated/Reviewed/Updated: Yes - My Orders Last 24 Hours: My Active Orders 03/14/21 02:04 Oxygen Therapy [RC] PRN Up ad [place] [RC] ASDIRECTED VTE/DVT Education [RC] PER UNIT ROUTINE Vital Signs [RC] Q4H Sequential Compression Device [OM.PC] Per Unit Routine Resuscitation Status Routine 03/14/21 02:05 Antiembolic Devices [RC] PER UNIT ROUTINE RT Aerosol Therapy [RC] ASDIRECTED 03/14/21 02:15 Azithromycin [Zithromax] 500 mg PO Q24H 03/14/21 06:00 Albuterol/Ipratropium [DuoNeb 3.0-0.5 MG/3 ML] 3 ml NEB Q4HRRT 03/14/21 Breakfast Regular Diet [DIET] 03/14/21 09:00 methylPREDNISolone Sod Succ [Solu-MEDROL] 125 mg IVPUSH DAILY 03/14/21 13:32 Acetaminophen [TylenoL] 325 mg PO Q4H PRN Ibuprofen [Motrin] 200 mg PO Q4H PRN - Plan Plan:: 25 yo male admitted for acute asthma exacerbation. He has been weaned off oxygen. Will continue steroid therapy, duonebs an azithromycin. If he continue to improve will likely discharge home tomorrow.
[2021-03-15] MEDS: Albuterol/Ipratropium 3.0-0.5 MG/3 ML Neb Soln NEB SCH ×3 (02:07→10:49)
[2021-03-15] MEDS: Azithromycin 250 MG Tab PO SCH (02:07)
[2021-03-15 06:26] LABS: BLOOD UREA NITROGEN,BUN 13 mg/dL (7.0-18.0); CARBON DIOXIDE,CO2 26.9 mmol/L (21.0-32.0); CHLORIDE,CL 103 mmol/L (98-107); GLUCOSE RANDOM 108 mg/dL (74-106); POTASSIUM,K 4.2 mmol/L (3.5-5.1); SODIUM,NA 140 mmol/L (136-148)
[2021-03-15] MEDS: methylPREDNISolone Sodium Succinate 125 MG/2 ML SDV IVPUSH SCH (09:45)
[2021-03-15 11:01] VITALS: BP 125/68; PULSE 90
--- NOTE | 2021-03-15 13:55 | PCM.DCSUM1 ---
Discharge Summary - Hospital Course Free Text/Narrative:: The patient is a 25-year-old male with a significant past medical history of asthma, on day 2 of service, who was admitted for an asthma exacerbation. While in hospital the patient received medications designed to alleviate the symptoms from an asthma exacerbation including steroids, duo nebs, and azithromycin. Throughout his hospital course, the patient was supplied different fluctuations of oxygen until his symptoms improved and he was left on room air. Upon discharge, the patient will be supplied a steroid taper of prednisone per oral route. He will also be supplied with 1 dose of azithromycin 500 mg per oral route to be taken on 03/16 in the morning. He will also be discharged on an Advair Diskus 250/5 to be taken every 12 hours as needed. Lastly, the patient asked for duo nebulizer vials to be supplied to him because he has a home nebulizer apparatus at his residence which has helped him with shortness of breath in the past. The patient will not require any home oxygen upon discharge. He has been advised to return to the hospital if he has shortness of breath, respiratory difficulty, and use of accessory muscle use in breathing. He has also been advised to be compliant with his medications and to take them at scheduled times. The patient is stable and now ready to be discharged. - Discharge Data Discharge Date: 03/15/21 Discharge Disposition: Home, Self-Care 01 Condition: Fair - Referral to Home Health Primary Care Physician: Pravin Marcus MD - Patient Instructions Diet: Regular Diet as Tolerated Activity: As Tolerated Showering/Bathing: May Shower Other/Special Instructions: -Be compliant with medications and take them as scheduled times. -If you experience continuing shortness of breath or respiratory difficulty return to the hospital. -Activity as tolerated, do not overexert yourself - Discharge Plan Prescriptions/Med Rec: Fluticasone Propion/Salmeterol [Advair 250-50 Diskus] 1 each IH Q12H #1 blst.w.dev Albuterol/Ipratropium [DuoNeb 3.0-0.5 MG/3 ML] 3 ml NEB Q4HRRT #3 vial predniSONE 40 mg PO .Daily Taper #5 tab Azithromycin [Zithromax] 500 mg PO Q24H #1 tablet Home Medications: Home Meds Albuterol [Ventolin HFA] 2 puff INH Q4H PRN 10/12/21 [History] Albuterol/Ipratropium [DuoNeb 3.0-0.5 MG/3 ML] 3 ml NEB Q6H PRN 03/14/21 [History] Albuterol/Ipratropium [DuoNeb 3.0-0.5 MG/3 ML] 3 ml NEB Q4HRRT #3 vial 03/15/21 [Rx] Azithromycin [Zithromax] 500 mg PO Q24H #1 tablet 03/15/21 [Rx] Fluticasone Propion/Salmeterol [Advair 250-50 Diskus] 1 each IH Q12H #1 blst.w.dev 03/15/21 [Rx] predniSONE 40 mg PO .Daily Taper #5 tab 03/15/21 [Rx] Patient Handouts: Hypoxia, Asthma, Adult, Azithromycin tablets, Ipratropium; Albuterol Inhalation Solution, Prednisone tablets, Asthma Attack Prevention, Adult, Asthma and Physical Activity, Fluticasone; Salmeterol inhalation aerosol Referrals: Pravin Marcus MD [Primary Care Provider] - 03/22/21 2:30 pm (Check in 30 mins prior to appointment and bring ID, insurance and mask.) - Discharge Summary/Plan Comment DC Time >30 min.: Yes Total # of Minutes for Discharge Time: 35 minutes - Review of Systems General: Denies: Fever, Weakness, Fatigue HEENT: Denies: Headaches, Sore Throat Pulmonary: Denies: Shortness of Breath, Cough Cardiovascular: Denies: Chest Pain, Palpitations, Dyspnea on Exertion Gastrointestinal: Denies: Abdominal Pain, Constipation, Diarrhea Genitourinary: Denies: Dysuria - Patient Data Vitals - Most Recent: Last Vital Signs Temp 98.2 F 03/15/21 08:00 Pulse 90 03/15/21 08:00 Resp 19 03/15/21 08:00 BP 125/68 03/15/21 08:00 Pulse Ox 96 03/15/21 08:00 Weight - Most Recent: 196 lb 11.2 oz I&O - Last 24 hours: Intake & Output 03/14/21 03/15/21 03/15/21 22:59 06:59 14:59 Intake Total 2500 Output Total 1500 Balance 1000 Lab Results - Last 24 hrs: Laboratory Results - last 24 hr 03/15/21 03/15/21 Range/Units 05:15 05:15 WBC 21.73 H (4.0-11.0) K/uL RBC 4.85 (4.50-5.90) M/uL Hgb 16.0 (13.0-17.0) g/dL Hct 46.1 (38.0-50.0) % MCV 95.1 (80.0-98.0) fL MCH 33.0 H (27.0-32.0) pg MCHC 34.7 (31.0-37.0) g/dL RDW Std Deviation 45.3 (28.0-62.0) fl RDW Coeff of Lydia 13 (11.0-15.0) % Plt Count 292 (150-400) K/uL MPV 10.10 (7.40-12.00) fL Neut % (Auto) 84.1 H (48.0-80.0) % Lymph % (Auto) 9.0 L (16.0-40.0) % [place] % (Auto) 6.7 (0.0-15.0) % Eos % (Auto) 0.1 (0.0-7.0) % Baso % (Auto) 0.1 (0.0-1.5) % Neut # (Auto) 18.3 H (1.4-5.7) K/uL Lymph # (Auto) 2.0 (0.6-2.4) K/uL [place] # (Auto) 1.5 H (0.0-0.8) K/uL Eos # (Auto) 0.0 (0.0-0.7) K/uL Baso # (Auto) 0.0 (0.0-0.1) K/uL Nucleated RBC % 0.0 /100WBC Nucleated RBCs # 0 K/uL Sodium 140 (136-148) mmol/L Potassium 4.2 (3.5-5.1) mmol/L Chloride 103 (98-107) mmol/L Carbon Dioxide 26.9 (21.0-32.0) mmol/L BUN 13 (7.0-18.0) mg/dL Creatinine 0.9 (0.8-1.3) mg/dL Est Cr Clr Drug Dosing 128.43 mL/min Estimated GFR (MDRD) > 60.0 ml/min Glucose 108 H (74-106) mg/dL Calcium 8.9 (8.5-10.1) mg/dL Med Orders - Current: Current Medications Discontinued Medications Acetaminophen (Acetaminophen 325 Mg Tab) 325 mg PO Q4H PRN PRN Reason: Pain Albuterol/Ipratropium (Albuterol/Ipratropium 3.0-0.5 Mg/3 Ml Neb Soln) 3 ml NEB ONETIME ONE Stop: 03/13/21 19:57 Last Admin: 03/13/21 19:59 Dose: 3 ml Documented by: Albuterol/Ipratropium (Albuterol/Ipratropium 3.0-0.5 Mg/3 Ml Neb Soln) 3 ml NEB ONETIME ONE Stop: 03/13/21 19:57 Last Admin: 03/13/21 19:59 Dose: 3 ml Documented by: Albuterol/Ipratropium (Albuterol/Ipratropium 3.0-0.5 Mg/3 Ml Neb Soln) 3 ml NEB ONETIME ONE Stop: 03/13/21 19:57 Last Admin: 03/13/21 19:59 Dose: 3 ml Documented by: Albuterol/Ipratropium (Albuterol/Ipratropium 3.0-0.5 Mg/3 Ml Neb Soln) 3 ml NEB ONETIME ONE Stop: 03/13/21 22:45 Last Admin: 03/13/21 22:56 Dose: 3 ml Documented by: Albuterol/Ipratropium (Albuterol/Ipratropium 3.0-0.5 Mg/3 Ml Neb Soln) 3 ml NEB Q4HRRT [facility] Last Admin: 03/15/21 10:49 Dose: Not Given Documented by: Azithromycin (Azithromycin 250 Mg Tab) 500 mg PO Q24H [facility] Last Admin: 03/15/21 02:07 Dose: 500 mg Documented by: Dexamethasone (Dexamethasone 10 Mg/Ml Sdv) 10 mg IVPUSH ONETIME ONE Stop: 03/13/21 19:58 Last Admin: 03/13/21 20:03 Dose: 10 mg Documented by: Sodium Chloride (Normal Saline) 1,000 mls @ 999 mls/hr IV STAT ONE Stop: 03/13/21 20:57 Last Admin: 03/13/21 20:03 Dose: 999 mls/hr Documented by: Magnesium Sulfate (Magnesium Sulfate In Water 2 Gm/50 Ml) 50 mls @ 150 mls/hr IV ONETIME ONE Stop: 03/13/21 21:19 Last Admin: 03/13/21 21:04 Dose: 150 mls/hr Documented by: Magnesium Sulfate (Magnesium Sulfate In Water 2 Gm/50 Ml) 25 mls @ 150 mls/hr IV ONETIME ONE Stop: 03/13/21 21:29 Ibuprofen (Ibuprofen 200 Mg Tab) 200 mg PO Q4H PRN PRN Reason: Pain Iopamidol (Iopamidol 755 Mg/Ml 500 Ml Multipack Bottle) 100 ml IVPUSH ONETIME ONE Stop: 03/13/21 21:32 Last Admin: 03/13/21 21:47 Dose: 100 ml Documented by: Magnesium Sulfate (Magnesium Sulfate (4.06 Meq/Ml) 5 Gm/10 Ml Sdv) 3 gm IV NOW STA Stop: 03/13/21 20:13 Methylprednisolone Sodium Succinate (Methylprednisolone Sodium Succinate 125 Mg/2 Ml Sdv) 125 mg IVPUSH DAILY [facility] Last Admin: 03/15/21 09:45 Dose: 125 mg Documented by: Sodium Chloride (Sodium Chloride 0.9% 10 Ml Syringe) 10 ml FLUSH ASDIRECTED PRN PRN Reason: Keep Vein Open Last Admin: 03/13/21 19:59 Dose: 10 ml Documented by: Sodium Chloride (Sodium Chloride 0.9% 2.5 Ml Syringe) 2.5 ml FLUSH ASDIRECTED PRN PRN Reason: Keep Vein Open Last Admin: 03/13/21 19:59 Dose: 2.5 ml Documented by: - Exam General: Reports: Alert, Oriented, Cooperative HEENT: Reports: Mucous Membr. Moist/[place] Neck: Reports: Trachea Midline Lungs: Reports: Clear to Auscultation, Normal Respiratory Effort Cardiovascular: Reports: Regular Rate, Regular Rhythm, No Murmurs GI/Abdominal Exam: Normal Bowel Sounds, Soft, Non-Tender
== END 2021-03-15 12:15 | disposition home or self-care (01) ==
LOC: MW.ED 19:33 → MW.MS 23:20
PROVIDERS: ADMIT Internal Medicine; ATTEND Internal Medicine
DX: J45.21 Mild intermittent asthma with (acute) exacerbation (principal); F17.210 Nicotine dependence, cigarettes, uncomplicated; Z91.030 Bee allergy status; Z98.890 Other specified postprocedural states; Z79.899 Other long term (current) drug therapy; Z20.822 Contact with and (suspected) exposure to COVID-19
CPT/HCPCS: 36415; 71045; 71275; 80048; 80053; 82803; 83605; 84484; 85025; 85379; 87635; 94640; 96365; 96375; 96376; 99285; A9270; G0378; J1100; J2930; J3475; J7030; Q9967; J7620-GY; U0002

== ENCOUNTER 2021-05-28 19:34 | Emergency (ER) | payer BC ==
[2021-05-28] MEDS ORDERED: Albuterol/Ipratropium 3.0-0.5 MG/3 ML Neb Soln NEB ONE ×2 (20:16→21:25)
[2021-05-28] MEDS ORDERED: methylPREDNISolone Sodium Succinate 125 MG/2 ML SDV IM ONE (20:16)
--- NOTE | 2021-05-28 20:18 | EDM.PDOC ---
ED HPI GENERAL MEDICAL PROBLEM - General Chief Complaint: Asthma Stated Complaint: ASTHMA ATTACK Time Seen by Provider: 05/28/21 20:11 Source of Information: Reports: Patient History Limitations: Reports: No Limitations - History of Present Illness INITIAL COMMENTS - FREE TEXT/NARRATIVE: 25-year-old male past medical history asthma presents for presumptive asthma exacerbation. Patient notes that he has been feeling sick for around the last week and symptoms seem to be worsening. He endorses chest tightness, cough, shortness of breath. He was last on steroids about 3 months ago. No recent antibiotic use. Denies any fevers. Notes chest tightness, wheezing. Has used inhaler and nebulizer at home with minimal relief. - Related Data Allergies Allergy/AdvReac Type Severity Reaction Status Date / Time bee venom protein (honey bee) Allergy Anaphylactic Verified 03/14/21 01:29 Shock Home Meds: Home Meds Albuterol [Ventolin HFA] 2 puff INH Q4H PRN 03/14/21 [History] Albuterol/Ipratropium [DuoNeb 3.0-0.5 MG/3 ML] 3 ml NEB Q6H PRN 03/14/21 [History] Albuterol/Ipratropium [DuoNeb 3.0-0.5 MG/3 ML] 3 ml NEB Q4HRRT #3 vial 03/15/21 [Rx] Azithromycin [Zithromax] 500 mg PO Q24H #1 tablet 03/15/21 [Rx] Fluticasone Propion/Salmeterol [Advair 250-50 Diskus] 1 each IH Q12H #1 blst.w.dev 03/15/21 [Rx] predniSONE 40 mg PO .Daily Taper #5 tab 03/15/21 [Rx] Albuterol Sulfate 1.25 mg IH Q4H PRN #60 vial 05/28/21 [Rx] Azithromycin 250 mg PO DAILY 5 Days #6 tablet 05/28/21 [Rx] predniSONE 40 mg PO DAILY 5 Days #10 tab 05/28/21 [Rx] Past Medical History HEENT History: Reports: Impaired Vision Respiratory History: Reports: Asthma - Infectious Disease History Infectious Disease History: Reports: Chicken Pox, Novel Coronavirus - Past Surgical History HEENT Surgical History: Reports: None GI Surgical History: Reports: Hernia Repair/Other Social & Family History - Family History Family Medical History: No Pertinent Family History Respiratory: Reports: Asthma Endocrine/Metabolic: Reports: Diabetes, Type I - Caffeine Use Caffeine Use: Reports: Energy Drinks Caffeine Use Comment: 1 L daily ED ROS GENERAL - Review of Systems Review Of Systems: Comprehensive ROS is negative, except as noted in HPI. ED EXAM, GENERAL - Physical Exam Exam: See Below Exam Limited By: No Limitations General Appearance: Alert, WD/WN, No Apparent Distress Ears: Hearing Grossly Normal Throat/Mouth: Normal Voice, No Airway Compromise Head: Atraumatic, Normocephalic Respiratory/Chest: No Respiratory Distress, No Accessory Muscle Use, Other (Inspiratory and expiratory wheezing with good air entry, symmetric) Cardiovascular: Normal Peripheral Pulses, Tachycardia Extremities: Normal Inspection Neurological: Alert, Normal Cognition, Normal Gait Psychiatric: Normal Affect, Normal Mood Skin Exam: Warm, Dry, Intact, Normal Color #1 Interpretation EKG Date: 05/28/21 Time: 19:50 Rhythm: NSR Rate (Beats/Min): 124 [place]: Normal P-Wave: Present QRS: Normal ST-T: Normal QT: Normal OR/PQ Interval: 136 EKG Interpretation Comments: sinus tachycardia, no ischemic changes Course - Vital Signs Last Recorded V/S: Last Vital Signs Temp 99.0 F 05/28/21 19:44 Pulse 124 H 05/28/21 21:11 Resp 18 05/28/21 21:11 BP 148/91 H 05/28/21 21:11 Pulse Ox 92 L 05/28/21 21:11 - Orders/Labs/Meds Orders: Active Orders 24 hr Category Date Time Status RT Aerosol Therapy [RC] ASDIRECTED Care 05/28/21 20:16 Active RT Aerosol Therapy [RC] ASDIRECTED Care 05/28/21 21:25 Active Labs: Laboratory Tests 05/28/21 Range/Units 20:29 Influenza Type A RNA NEGATIVE (NEGATIVE) Influenza Type B RNA NEGATIVE (NEGATIVE) SARS-CoV-2 RNA (CASSANDRA) NEGATIVE (NEGATIVE) Meds: Medications Discontinued Medications Generic Name Dose Route Start Last Admin Trade Name Freq PRN Reason Stop Dose Admin Albuterol/Ipratropium 3 ml 05/28/21 20:16 05/28/21 20:39 Albuterol/Ipratropium 3.0-0.5 Mg/3 Ml Neb Soln NEB 05/28/21 20:17 3 ml ONETIME ONE Administration Albuterol/Ipratropium 3 ml 05/28/21 21:25 05/28/21 21:29 Albuterol/Ipratropium 3.0-0.5 Mg/3 Ml Neb Soln NEB 05/28/21 21:26 3 ml ONETIME ONE Administration Methylprednisolone Sodium Succinate 125 mg 05/28/21 20:16 05/28/21 20:40 Methylprednisolone Sodium Succinate 125 Mg/2 Ml Sdv IM 05/28/21 20:17 125 mg ONETIME ONE Administration - Re-Assessments/Exams Free Text/Narrative Re-Assessment/Exam: 05/28/21 22:12 Patient is feeling better after 2 DuoNeb's. He is tachycardic to [id number] but this is expected in the setting of recent DuoNeb treatment. Will discharge patient with albuterol solution for his nebulizer, prednisone, azithromycin. Departure - Departure Time of Disposition: 22:12 Disposition: Home, Self-Care 01 Condition: Good Clinical Impression: Asthma attack Qualifiers: Asthma severity: moderate Asthma persistence: unspecified Qualified Code(s): J45.901 - Unspecified asthma with (acute) exacerbation - Discharge Information Instructions: Asthma Attack Forms: ED Department Discharge Additional Instructions: Your medicines were sent to [facility]. The following information is given to patients seen in the emergency department who are being discharged to home. This information is to outline your options for follow-up care. We provide all patients seen in our emergency department with a follow-up referral. The need for follow-up, as well as the timing and circumstances, are variable depending upon the specifics of your emergency department visit. If you don't have a primary care physician on staff, we will provide you with a referral. We always advise you to contact your personal physician following an emergency department visit to inform them of the circumstance of the visit and for follow-up with them and/or the need for any referrals to a consulting specialist. The emergency department will also refer you to a specialist when appropriate. This referral assures that you have the opportunity for follow-up care with a specialist. All of these measure are taken in an effort to provide you with optimal care, which includes your follow-up. Under all circumstances we always encourage you to contact your private physician who remains a resource for coordinating your care. When calling for follow-up care, please make the office aware that this follow-up is from your recent emergency room visit. If for any reason you are refused follow-up, please contact the [facility] Emergency Department at and asked to speak to the emergency department charge nurse. Please follow up with your primary care physician. If you do not have a primary care physician, see below: [facility] [address], [place] [id number] [facility] [address] [place], [place] [id number] [facility] [address] [address] Sepsis Event Note (ED) - Evaluation Sepsis Screening Result: No Definite Risk - Focused Exam Vital Signs: Vital Signs Temp Pulse Resp BP Pulse Ox 05/28/21 21:11 124 H 18 148/91 H 92 L 05/28/21 19:44 99.0 F 132 H 17 140/82 94 L - My Orders Last 24 Hours: My Active Orders 05/28/21 20:16 RT Aerosol Therapy [RC] ASDIRECTED 05/28/21 21:25 RT Aerosol Therapy [RC] ASDIRECTED - Assessment/Plan Last 24 Hours: My Active Orders 05/28/21 20:16 RT Aerosol Therapy [RC] ASDIRECTED 05/28/21 21:25 RT Aerosol Therapy [RC] ASDIRECTED
--- NOTE | 2021-05-28 20:55 | CR ---
INDICATION: Asthma, shortness of breath, cough. TECHNIQUE: Chest 1 view. COMPARISON: Chest radiograph 03/13/2021. FINDINGS: No focal consolidation, pleural effusion, or pneumothorax. Normal heart size and pulmonary vascularity. There is new callus formation about the right posterolateral 9th rib which could suggest a healing fracture. IMPRESSION: 1. No acute cardiopulmonary findings. 2. New healing fracture of the right posterolateral 9th rib. Dictated by Ekta Zamarripa MD @ 05/28/2021 8:53:39 PM (Electronically Signed)
[2021-05-28 21:13] LABS: CORONAVIRUS COVID-19 NAA NEGATIVE (NEGATIVE); INFLUENZA A NAA NEGATIVE (NEGATIVE); INFLUENZA B NAA NEGATIVE (NEGATIVE)
[2021-05-28 22:28] VITALS: BP 142/85; PULSE 128
== END 2021-05-28 22:28 | disposition home or self-care (01) ==
LOC: MW.ED 19:34
DX: J45.909 Unspecified asthma, uncomplicated (principal); R00.0 Tachycardia, unspecified; Z91.030 Bee allergy status; Z79.899 Other long term (current) drug therapy; Z20.822 Contact with and (suspected) exposure to COVID-19
CPT/HCPCS: 0240U; 71045; 93005; 96372; 99285; J2930; J7620-GY